=== PATIENT | female | born 1955 | race Asian ===

== ENCOUNTER 2019-01-24 16:43 | Emergency (ER) | payer OTHER ==
[2019-01-24 16:50] VITALS: BP 155/90; PULSE 100; TEMP 99.7; BMI 21.2
--- NOTE | 2019-01-24 16:50 | PDOC ---
Rapid Medical Evaluation Chief Complaint: Pain, Acute Time Seen by Provider: 01/24/19 16:48 Medical Evaluation: Allergies Allergy/AdvReac Type Severity Reaction Status Date / Time Sulfa (Sulfonamide Allergy Intermediate Hives Verified 04/29/17 18:49 Antibiotics) [Sulfa(Sulfonamide Antibiotics)] 01/24/19 16:49 Pt presents for evaluation of R shoulder pain for two days. Denies trauma. States that she is unable to brush her hair d/t pain. Exam: Decreased ROM of the R shoulder. Pt is R hand dominant Orders: Nothing Pt to proceed to the ER for further evaluation Discharge Disposition - Diagnosis Acute pain of right shoulder - Referrals - Patient Instructions - Post Discharge Activity
--- NOTE | 2019-01-24 17:12 | PDOC ---
History of Present Illness - General Chief Complaint: Pain, Acute Stated Complaint: PAIN Time Seen by Provider: 01/24/19 16:48 - History of Present Illness Initial Comments: 01/24/19 17:09 63-year-old female with a past medical history of hypertension presents for evaluation of atraumatic right shoulder pain x1 day she states she had chills last night and woke up with her shoulder stiff this morning Past History - Past Medical History Allergies/Adverse Reactions: Allergies Allergy/AdvReac Type Severity Reaction Status Date / Time Sulfa (Sulfonamide Allergy Intermediate Hives Verified 01/24/19 16:50 Antibiotics) [Sulfa(Sulfonamide Antibiotics)] Home Medications: Ambulatory Orders Calcium [Hi-Kye] 500 mg PO DAILY 11/03/11 Naproxen [Naprosyn -] 500 mg PO BID PRN #21 tablet 03/02/15 Erythromycin 0.5% Eye Ointment [Erythromycin 0.5% Eye Ointment -] 1 applic OU ASDIR #1 tube 04/29/17 COPD: No DVT: No - Immunization History Immunization Up to Date: Yes - Psycho Social/Smoking Cessation Hx Smoking Status: No Smoking History: Never smoked Have you smoked in the past 12 months: No Number of Cigarettes Smoked Daily: 0 Information on smoking cessation initiated: No Hx Alcohol Use: No Drug/Substance Use Hx: No Substance Use Type: None Review of Systems - Review of Systems Constitutional: Yes: Chills. No: Fever, Malaise, Night Sweats Musculoskeletal: Yes: Joint Pain *Physical Exam - Vital Signs Last Vital Signs Temp Pulse Resp BP Pulse Ox 99.7 F H 100 H 19 155/90 98 01/24/19 16:48 01/24/19 16:48 01/24/19 16:48 01/24/19 16:48 01/24/19 16:48 - Physical Exam Comments: 01/24/19 17:10 Right shoulder skin color and temperature normal range of motion is limited in both internal/external rotation flexion and extension. Impingement maneuvers and rotator cuff strength is unable to be assessed. There are no gross sensorimotor deficit she is neurovascular intact. Medical Decision Making - Medical Decision Making 01/24/19 17:10 This is an adhesive capsulitis. In light of the chills and low-grade fever on examination of a septic joint is possible however she has normal temperature without tenderness. I do not suspect a septic joint at this time. I have shown her gentle range of motion activities with instructions with close orthopedic follow-up and returning to the emergency room should symptoms worsen. Discharge - Discharge Information Problems reviewed: Yes Clinical Impression/Diagnosis: Acute pain of right shoulder, Capsulitis of right shoulder Condition: Stable Disposition: HOME - Admission No - Follow up/Referral Referrals: Jose Guadalupe Javed DO [Staff Physician] - - Patient Discharge Instructions Patient Printed Discharge Instructions: Frozen Shoulder, DI for Frozen Shoulder Additional Instructions: Return to the emergency room for worsening symptoms. Tylenol and Motrin as directed for pain. Please without fail follow-up with orthopedic surgery in 1 to 2 days for further evaluation and treatment options. And again very important to return to the emergency room should symptoms worsen. At this time it does not appear that you have an infected joint however if you do this becomes an emergency which may require surgery. - Post Discharge Activity
== END 2019-01-24 17:19 | disposition home or self-care (01) ==
LOC: JERFT 16:43
DX: M25.511 Pain in right shoulder (principal); M77.9 Enthesopathy, unspecified; Z88.2 Allergy status to sulfonamides; I10 Essential (primary) hypertension
CPT/HCPCS: 99281-25